=== PATIENT | male | born 1950 | race Caucasian/White ===

== ENCOUNTER 2019-02-24 12:00 | Outpatient (REF) | payer MEDICARE, SELFPAY ==
[2019-02-24 18:38] LABS: ALT 27 U/L (16-63); AST 20 U/L (15-37); Albumin 4.5 g/dL (3.4-5.0); Alkaline Phosphatase 73 U/L (46-116); Anion Gap 12.3 mmol/L (3-11); BUN 14 mg/dL (7-18); Bilirubin, Total 0.7 mg/dL (0.2-1.0); CO2 23.7 mmol/L (21.0-32.0); CREATININE 1.13 mg/dL (0.70-1.30); Calcium 9.3 mg/dL (8.5-10.1); Calculated LDL 149 mg/dL; Chloride 104 mmol/L (98-107); Cholesterol 218 mg/dL (50-200); Glucose 100 mg/dL (70-100); HDL Cholesterol 55 mg/dL (40-60); Potassium 4.2 mmol/L (3.5-5.1); Sodium 140 mmol/L (136-145); Total Protein 7.6 g/dL (6.4-8.2); Triglyceride 73 mg/dL (30-150)
== END 2019-02-24 12:20 ==
LOC: NCHCN 12:00
PROVIDERS: PCP Nurse Practitioner; Visit Provider Nurse Practitioner
DX: K74.60 Unspecified cirrhosis of liver (principal); E78.89 Other lipoprotein metabolism disorders
CPT/HCPCS: 80053; 80061

== ENCOUNTER 2019-04-20 06:51 | Emergency (ER) | payer MEDICARE, SELFPAY ==
[2019-04-20 06:53] VITALS: BP 139/83; PULSE 79; RESP 16; TEMP 36.7; O2SAT 98
--- NOTE | 2019-04-20 07:05 | ED.GENADUL_ITS ---
Discharge Plan Disposition Patient Disposition: HOME Condition: Good Discharge Details Chief Complaint: DentalOral Clinical Impression: Infected dental carries Primary Care Provider: Natalee Castro ED Provider: Karthik Akers Home Meds and New Rx's Prescriptions: New penicillin V potassium 500 mg tablet 500 mg PO QID 10 Days Qty: 40 RF: 0 No Action omeprazole 40 MG capsule,delayed release(DR/EC) 40 mg PO DAILY RF: 0 zolpidem 5 MG tablet 5 mg PO HS PRNRF: 0 bisacodyl [Dulcolax (bisacodyl)] 5 MG tablet,delayed release (DR/EC) 5 mg PO ONCE Qty: 4 RF: 0 zinc 50 MG tablet 50 mg PO DAILY RF: 0 cholecalciferol (vitamin D3) [Vitamin D3] 2,000 UNIT capsule 2,000 unit PO DAILY RF: 0 tramadol 50 MG tablet 50 mg PO BID PRNRF: 0 Discharge Instructions Instructions: Dental Caries (ED) Additional Instructions: Please take the antibiotic as directed. This will help with the pain but this will take some time to improve the symptoms. If at any point you would like the dental block that I offered, please return and we can provide it to you immediately. Please follow-up with your dentist closely, as he will likely need removal of your teeth. If you notice any worsening of your symptoms, or any new symptoms such as vomiting, diarrhea, fever, chills, shortness of breath, chest pain, numbness, weakness, or fainting , please return immediately to the emergency department for reevaluation. Please follow up with your primary care provider as soon as possible for reassessment and reevaluation. As always, it was a pleasure participating in your medical care today. Referrals: Natalee Castro [Primary Care Provider] - Medical Decision Making This is a 69-year-old male with a past medical history of liver tumors, hepatitis C, renal cancer, who presents today for evaluation of dental pain in his lower front teeth. This is been present for the last few days. He has a history of notable dental caries. Physical exam demonstrates no evidence of periapical abscess or fluctuance. Pain and mild generalized swelling is located around tooth 24/25. I did give the patient the option of receiving a dental block, however he is refused at this time. We will give a dose of antibiotics here and then a prescription for home use. Recommend continued close follow-up with his dentist. Discussed the importance of red flags for which to immediately return. Additionally I did offer that anytime he could come back for the dental block as we discussed. I have extensively reviewed the treatment plan and discharge instructions with the patient. I have addressed all patient concerns at this time. The patient was made aware of what symptoms to monitor for that would warrant a return to the emergency department. Discussed the plan with the patient, they demonstrate verbal understanding and agreement with our assessment and plan at this time. HPI General Date/Time Provider Initiated Documentation: 04/20/19 06:58 . HPI Narrative: This is a 69-year-old male with a past medical history of hepatitis C, chronic hepatitis, kidney cancer, who presents today for evaluation of dental pain. He has a history of dental caries, and has had teeth removed in the past. Patient states that for the last few days he has had pain in the lower frontal teeth. He has noticed a small amount of swelling in this area. He denies any drainage or discharge. He does have a regular dentist that he follows with, but he has not yet seen them. He denies any headache, fever, chills or other complaints. He denies any other modifying factors. No other complaints at this time. Related Data Home Medications Medication Instructions Recorded Confirmed cholecalciferol (vitamin D3) 2,000 unit PO DAILY 11/03/12 04/20/19 [Vitamin D-3] zinc 50 mg PO DAILY 11/03/12 04/20/19 omeprazole 40 mg PO DAILY 02/10/13 04/20/19 zolpidem 5 mg PO HS PRN 02/10/13 04/20/19 bisacodyl [Dulcolax] 5 mg PO ONCE #4 tab 08/30/15 04/20/19 tramadol 50 mg PO BID PRN 10/25/15 04/20/19 penicillin V potassium 500 mg PO QID 10 Days #40 tab 04/20/19 Previous Rx's Medication Instructions Recorded penicillin V potassium 500 mg PO QID 10 Days #40 tab 04/20/19 Allergies Allergy/AdvReac Type Severity Reaction Status Date / Time No Known Allergies Allergy Unverified 07/08/17 19:18 General Stated Complaint: DentalOral MELYSSA: 4 Review of Systems All systems reviewed & are unremarkable except as noted in HPI and below PFSH Medical History LIVER TUMORS Acute hepatitis c Chronic hepatitis CHRONIC NARCOTIC USE COLONIC ADENOMA Male erectile disorder NEPHROLITHIASIS Osteoarthritis Surgical History (Updated 04/03/18 @ 14:33 by [employer]) Auricular cyst excision Colonoscopy - IV Sedation egd 2009 Tooth extraction Family History Father Multiple myeloma Brother Myocardial infarction Daughter Hodgkin's disease Mother Arthritis Brother No problems noted. Social History Smoking/Tobacco Use Status: Former Tobacco Use Alcohol Intake: current Alcohol Intake frequency: holidays/special occasions only Drug use: Never Substance use type: does not use Do you feel safe at home: Yes Do you feel safe in your relationship?: Yes Exam Narrative Exam Narrative: 1.Const: Well-nourished, Well-developed, appearing stated age 2.Eyes: PERRL, no conjunctival injection, and symmetrical lids. 3.ENT: Atraumatic external nose and ears. Moist MM. Neck: Symmetric, trachea midline, No thyromegaly. Notably poor dentition throughout, front lower teeth are notably diseased, with old fracture patterns. Although there is mild swelling around the chin there is no evidence of Ludwigs angina, and there is also no evidence of fluctuance suggestive of periapical abscess. No active drainage. 4.CVS: +S1/S2, No murmurs or gallops. Peripheral pulses 2+ and equal in all extremities. Brisk capillary refill in all extremities. 5.RESP: Unlabored respiratory effort. Clear to auscultation bilaterally. No wheezes rales or rhonchi 6.GI: Soft, Nontender/Nondistended, No hepatosplenomegaly. No guarding or rebound. 7.MSK: Normocephalic/Atraumatic, Extremities w/o deformity or ttp No cyanosis or clubbing, Normal movement of all extremities 8.Skin: Warm, Dry. No rashes or lesions. 9.Neuro: nut chopper II-XII grossly intact. Sensation grossly intact, no focal neurologic deficits. 10.Psych: (AAO) x3. Appropriate mood and affect Course Vital Signs Vital signs: Vital Signs Temperature 36.7 C 04/20/19 06:53 Pulse 79 04/20/19 06:53 Respiratory Rate 16 04/20/19 06:53 Blood Pressure 139/83 04/20/19 06:53 Pulse Oximetry 98 04/20/19 06:53 Temperature 36.7 C 04/20/19 06:53 Pulse 79 04/20/19 06:53 Respiratory Rate 16 04/20/19 06:53 Respiratory Effort 04/20/19 06:56 Blood Pressure 139/83 04/20/19 06:53 Blood Pressure Position Sitting 04/20/19 06:53 Pulse Oximetry 98 04/20/19 06:53 Oxygen Delivery Method Room Air 04/20/19 06:53 Oxygen Flow Rate 0 04/20/19 06:53 Pain Level 9 04/20/19 06:53
[2019-04-20] MEDS: Amoxicillin 500 MG CAP PO (07:07)
== END 2019-04-20 07:10 | disposition home or self-care (01) ==
PROVIDERS: Emergency Provider Student in an Organized Health Care Education/Training Program; PCP Nurse Practitioner
DX: K04.7 Periapical abscess without sinus (principal)
CPT/HCPCS: 99283

== ENCOUNTER 2019-04-20 07:59 | Emergency (ER) | payer MEDICARE, SELFPAY ==
[2019-04-20 08:05] VITALS: BP 128/79; PULSE 78; RESP 16; TEMP 36.9; O2SAT 98
--- NOTE | 2019-04-20 08:06 | W.ED.GENAD ---
Discharge Plan Disposition Patient Disposition: HOME Condition: Good Discharge Details Chief Complaint: Recheck Clinical Impression: Dental infection Primary Care Provider: Natalee Castro ED Provider: Lorenza Blackwell Home Meds and New Rx's Prescriptions: Continued omeprazole 40 MG capsule,delayed release(DR/EC) 40 mg PO DAILY RF: 0 zolpidem 5 MG tablet 5 mg PO HS PRNRF: 0 bisacodyl [Dulcolax (bisacodyl)] 5 MG tablet,delayed release (DR/EC) 5 mg PO ONCE Qty: 4 RF: 0 zinc 50 MG tablet 50 mg PO DAILY RF: 0 cholecalciferol (vitamin D3) [Vitamin D3] 2,000 UNIT capsule 2,000 unit PO DAILY RF: 0 tramadol 50 MG tablet 50 mg PO BID PRNRF: 0 penicillin V potassium 500 mg tablet 500 mg PO QID 10 Days Qty: 40 RF: 0 Discharge Instructions Instructions: Dental Abscess (ED) Additional Instructions: You were given a dental block today, this should last for the next 6 + hours. Encourage hydration. Please continue with plan set forth by Dr. Akers. Please call dentist tomorrow to schedule appointment in follow up as soon as possible. If you develop new or worsening symptoms please seek care urgently once again. Referrals: Natalee Castro [Primary Care Provider] - Discharge Data Discharge Date/Time-TO BE ENTERED AT DEPARTURE: 04/20/19 08:50 Medical Decision Making Patient is a 69-year-old male with history of liver tumors, hepatitis C, renal cancer presenting today for reevaluation of lower dental pain. He was seen here an hour ago at which time he was diagnosed with an infection and started on insulin VK. Prior to his discharge, the physician had offered the patient a dental block which he declined. He presents an hour later wanting said block. No interval change. No exam, patient infection noted at the #25 to. He is edentulous 07/11/2022 2. Patient I discussed the different types of block options and decided on a localized block with lidocaine bupivacaine. Patient I discussed risk/benefits as well as expected procedural steps. He was understanding and wished to proceed. Please see procedure note. Patient tolerated this well, had good results. He was given return instruction. He will continue with discharge plan set forth by Dr. Akers, will contact dentist for definitive care. All questions and concerns were addressed, she is in agreement with this plan. HPI General Mode of arrival: ambulatory. Date/Time Provider Initiated Documentation: 04/20/19 08:00. Limitations to Documentation: no limitations. Information obtained by: patient and RN notes reviewed. History of Present Illness 69 year old M presents to the emergency department with the chief complaint of front lower dental pain, described as severe, with intensity rated at 9. Quality is described as aching, and is localized to the mouth. Patient reports no radiation. Patient started experiencing this day(s) (1) and it has been constant. No relieving factors improve symptom(s), No exacerbating factors reported . Patient notes no other symptoms.; denies fever/chills, headaches, loss of appetite, nausea/vomiting, rash and shortness of breath. Patient did receive the following treatments prior to arrival, none Related Data Home Medications Medication Instructions Recorded Confirmed cholecalciferol (vitamin D3) 2,000 unit PO DAILY 11/03/12 04/20/19 [Vitamin D3] zinc 50 mg PO DAILY 11/03/12 04/20/19 omeprazole 40 mg PO DAILY 02/10/13 04/20/19 zolpidem 5 mg PO HS PRN 02/10/13 04/20/19 bisacodyl [Dulcolax (bisacodyl)] 5 mg PO ONCE #4 tab 08/30/15 04/20/19 tramadol 50 mg PO BID PRN 10/25/15 04/20/19 penicillin V potassium 500 mg PO QID 10 Days #40 tab 04/20/19 04/20/19 Previous Rx's Medication Instructions Recorded penicillin V potassium 500 mg PO QID 10 Days #40 tab 04/20/19 Allergies Allergy/AdvReac Type Severity Reaction Status Date / Time No Known Allergies Allergy Unverified 04/20/19 08:07 General MELYSSA: 4 Review of Systems Constitutional Constitutional: Reports as per HPI, Denies chills, Denies fatigue, Denies fever(s), Denies headache(s) and Denies poor appetite Eyes Eyes: Denies change in vision and Denies irritation ENT Ears, Nose, Mouth, and Throat: Reports as per HPI, Reports dental pain, Denies dysphagia, Denies dizziness, Denies dry mouth, Denies ear discharge, Denies otalgia, Reports facial pain, Denies headache(s), Denies hoarseness, Denies lip swelling, Denies nasal congestion, Denies odynophagia and Denies sore throat Cardiovascular Cardiovascular: Reports as per HPI and Denies chest pain Respiratory Respiratory: Reports as per HPI and Denies cough Gastrointestinal Gastrointestinal: Reports as per HPI, Denies dysphagia, Denies nausea, Denies odynophagia and Denies vomiting Integumentary/Breasts Skin/Breast: Reports as per HPI, Denies erythema, Denies rash and Denies skin pain Neurologic Neurologic: Reports as per HPI, Denies dizziness and Denies headache(s) Endocrine Endocrine: Denies fatigue Allergic/Immunologic Allergic/Immunologic: Denies lip swelling COUNT INCLUDES THE [facility] Medical History LIVER TUMORS Acute hepatitis c Chronic hepatitis CHRONIC NARCOTIC USE COLONIC ADENOMA Male erectile disorder NEPHROLITHIASIS Osteoarthritis Surgical History Auricular cyst excision Colonoscopy - IV Sedation egd 2009 Tooth extraction Family History Father Multiple myeloma Brother Myocardial infarction Daughter Hodgkin's disease Mother Arthritis Brother No problems noted. Social History Smoking/Tobacco Use Status: Former Tobacco Use Alcohol Intake: current Alcohol Intake frequency: holidays/special occasions only Drug use: Never Substance use type: does not use Do you feel safe at home: Yes Do you feel safe in your relationship?: Yes Exam Const General: cooperative, healthy appearing, comfortable, no acute distress, well developed and well groomed Nutritional Appearance: average body habitus and well nourished Orientation: alert and awake [facility] Head: normal to inspection, normocephalic and atraumatic Ears: hearing grossly normal bilaterally, external ears normal and TM's normal bilaterally General nose exam: external nose normal and nares normal Face and sinus: normal facial exam, sinuses nontender and face symmetric Teeth and gingiva: poor dentition Teeth image: 1. area of erythema and swelling. No area of fluctuance to suggest drainable abscess. #25 broken and dark. Edentulous at the #24/23. Throat: posterior oropharynx normal, tonsils normal and uvula midline Eyes General: appearance normal, both eyes and all related structures Neck Neck: normal visual inspection, full ROM, no lymphadenopathy, supple and no anterior neck swelling Resp Effort & Inspection: normal respiratory effort, able to speak in complete sentences and no respiratory distress Skin General skin exam: no rashes or lesions noted Trauma: no lacerations or abrasions Neuro General: alert and awake Cognition: normal cognition Speech: speech normal Gait: normal gait Psych Appearance: grossly normal and well kempt Mental Status: mental status grossly normal Speech and Movement: speech and movement normal Procedures Nerve Block Nerve Block 1: Local Anesthetic: Lidocaine 1% and Bupivicaine 0.25% Amount of anesthesia used (mL): 1.5 Side: right Intraoral Nerve Block: supraperiosteal Procedure Successful: Yes Patient Tolerated Procedure: well and no complications
[2019-04-20] MEDS: Lidocaine 1% Multi-Dose 50 ML VIAL IJ (08:51)
== END 2019-04-20 08:50 | disposition home or self-care (01) ==
PROVIDERS: Emergency Provider Physician Assistant; PCP Nurse Practitioner
DX: K08.89 Other specified disorders of teeth and supporting structures (principal); K03.81 Cracked tooth
CPT/HCPCS: 64400

== ENCOUNTER 2019-07-28 09:00 | Outpatient (CLI) | payer MEDICARE, SELFPAY | END 2019-07-28 09:20 | PROVIDERS: PCP Nurse Practitioner; Visit Provider Nurse Practitioner | DX: R06.02 Shortness of breath (principal); Z53.8 Procedure and treatment not carried out for other reasons ==

== ENCOUNTER 2019-11-27 02:28 | Outpatient (CLI) | payer MEDICARE, SELFPAY ==
[2019-11-28 09:22] LABS: AFP Tumor Marker 4.5 ng/mL (<8.1)
== END 2019-11-27 02:48 ==
PROVIDERS: PCP Nurse Practitioner; Visit Provider Physician Assistant
DX: C22.0 Liver cell carcinoma (principal)
CPT/HCPCS: 36415; 82105

== ENCOUNTER 2020-04-28 16:35 | Emergency (ER) | payer MEDICARE, SELFPAY ==
[2020-04-28] VITALS (66 sets, daily range): BP systolic 121–151; BP diastolic 65–98; PULSE 75–124; RESP 15–31; TEMP 37–37.4; O2SAT 94–99
--- NOTE | 2020-04-28 17:03 | W.ED.GENAD ---
Discharge Plan Disposition Patient Disposition: [facility] Condition: Poor Discharge Details Chief Complaint: Abd Prob Clinical Impression: Hematoma, Abdominal pain, Post surgical complication Primary Care Provider: Natalee Castor ED Provider: Lorenza Blackwell Home Meds and New Rx's Prescriptions: No Action omeprazole 40 MG capsule,delayed release(DR/EC) 40 mg PO DAILY RF: 0 zolpidem 5 MG tablet 5 mg PO HS PRNRF: 0 bisacodyl [Dulcolax (bisacodyl)] 5 MG tablet,delayed release (DR/EC) 5 mg PO ONCE Qty: 4 RF: 0 zinc 50 MG tablet 50 mg PO DAILY RF: 0 cholecalciferol (vitamin D3) [Vitamin D3] 2,000 UNIT capsule 2,000 unit PO DAILY RF: 0 tramadol 50 MG tablet 50 mg PO BID PRNRF: 0 aspirin 81 mg tablet,chewable 81 mg PO HS RF: 0 Medical Decision Making Patient is a pleasant 70 year old male presenting to the ED with c/c of LLQ pain x 2.5 days. Patient states that he underwent a TAVR on Sunday at [facility]. PMH significant for liver tumors, hepatitis C, renal cancer, cirrosis. States that initially there was no complications but that he then suffered a brief spell of unresponsiveness in the postoperative period. Chart review shows that there was a concern for either toxic metabolic encephalopathy secondary to his cirrhosis or small TIa/CVA. He did well after this brief issue and was discharged home the following day. Patient states that pain in the LLQ began a few hours after surgery but was not very bothersome until Sunday. Pain has increased since then. Denies dysurea, increased frequency or urgency. Denies N/V/D. No previous abdominal surgeries. No hx of diverticulitis. No CP or SOB. On exam, he appears uncomfortable but nontoxic. Lungs are clear. Abdomen signficant for LLQ pain. Incision sites appear to be healing well in both sides of the groin with no erythema, warmth, drainage or signficant bruising. Mild tendernss in his left testicle but no swelling, redness or objective abnormality noted. No CVA tenderness. Considered hematoma, postoperative infection, kidney stone or diverticulitis vs. other abdominal or urologic pahtology. Will obtain baseline labs and CTA of his abdomen. Labs reviewed. WBC of 11.77. Hbg 11.6, no recent for comparison. Lactate normal. CMP without signifcant abnormality. Lipase normal. UA negative. Patient is frustrated. He wants antibiotics and to go home. Had lengthy chat with [facility] patient about my concerns. In particular, I am concerned with how quickly he became tachycardic. While speaking with the patient, he became frustrated by haivng to wait for CT and his HR jumped to 130-140s. He is receiving hydration. Agreeable to staying and much more calm at this time. Called by radiologist who advised active bleeding is noted on the CT with a 7.9 x 4.3 x 6.4cm area of hematoma. Arterial active extravasation from [facility] posterior left external iliac artery. Images were already pushed to [facility]. Will call to request transfer. [facility] advises that beds are tight, they will call back. FINDINGS: Mediastinal space: Small hiatal hernia. Aorta: New aortic valve prosthesis. The visualized lung bases are clear. Celiac trunk and mesenteric arteries: No occlusion or significant stenosis. Incidental note is made of a replaced right hepatic artery arising from the SMA. Renal arteries: No occlusion or significant stenosis. Right iliac arteries: No occlusion or significant stenosis. Left iliac arteries: Posterior left external iliac artery focus of active extravasation with left pelvic hematoma. Focus of extravasation is best seen on series 4, image 68 and series 8, image 55. The hematoma measures 7.9 cm in AP dimension by 4.3 cm in transverse dimension by 6.4 cm in craniocaudal dimension. Liver: Post ablation defect in superior segment 8 of the right liver lobe. Multiple nonspecific arterially enhancing foci in segment 4 , segment 2, and segment 6 . Follow-up CT or MRI hepatic mass protocol to exclude additional hepatic lesions. Gallbladder and bile ducts: Unremarkable. No calcified stones. No ductal dilation. Pancreas: Unremarkable. No mass. No ductal dilation. Spleen: Unremarkable. No splenomegaly. Adrenals: Unremarkable. No mass. Kidneys and ureters: Stable postoperative changes of left upper pole nephron sparing partial nephrectomy. No recurrence or residual mass. Stomach and bowel: Unremarkable. No obstruction. No mucosal thickening. Appendix: Normal appendix. No appendicitis. Intraperitoneal space: Unremarkable. No free air. No significant fluid collection. Lymph nodes: Unremarkable. No enlarged lymph nodes. Urinary bladder: Mild mass effect on the left urinary bladder wall. Reproductive: Prostate gland enlargement with median lobe hypertrophy. Bones/joints: No acute fracture. No dislocation. Soft tissues: See Left iliac arteries finding. IMPRESSION: 1. Status post TAVR with left pelvic hematoma measuring 7.9 x 4.3 x 6.4 cm with a focus of active arterial extravasation from the posterior left external iliac artery. 2. Stable postoperative changes of left partial nephrectomy and focal right upper liver ablation with no evidence for residual or recurrence disease. 3. Ill-defined small foci of arterial enhancement in the anterior and inferior right liver. Not evaluable on this single CT arteriogram but may be better followed by formal CT or MR liver mass protocol. Called transfer center again, they are able to take the patient but need to reach surgeon. Spoke with surgeon at [facility]. Vascular surgeon reviewed images, not clear if the patient is actively bleeding but will US patient in the ED. Spoke with Dr. Buenrotsro in the ED who accepts the patient in an ED to ED transfer for further evaluation. Spoke with patient and his , Ann [phone], regarding stephania. They are in agreement with this plan. HPI General Mode of arrival: ambulatory. Date/Time Provider Initiated Documentation: 04/28/20 16:49. Limitations to Documentation: no limitations. Information obtained by: patient, RN/MD (called by urgent care PA who is evaluating the patient) and RN notes reviewed. History of Present Illness 70 year old M presents to the emergency department with the chief complaint of LLQ pain, described as moderate, Quality is described as sharp, and is localized to the abdomen. Patient reports no radiation. Patient started experiencing this day(s) (2.5) and it has been constant. Immobilization improves symptom(s), Movement worsens symptoms (sitting up) . Patient notes denies chest pain, cough, fever/chills, loss of appetite, nausea/vomiting, rash and shortness of breath. Patient did receive the following treatments prior to arrival, none Related Data Home Medications Medication Instructions Recorded Confirmed cholecalciferol (vitamin D3) 2,000 unit PO DAILY 11/03/12 04/28/20 [Vitamin D3] zinc 50 mg PO DAILY 11/03/12 04/28/20 omeprazole 40 mg PO DAILY 02/10/13 04/28/20 zolpidem 5 mg PO HS PRN 02/10/13 04/28/20 bisacodyl [Dulcolax (bisacodyl)] 5 mg PO ONCE #4 tab 08/30/15 04/28/20 tramadol 50 mg PO BID PRN 10/25/15 04/28/20 aspirin 81 mg PO HS 04/28/20 04/28/20 Allergies Allergy/AdvReac Type Severity Reaction Status Date / Time No Known Allergies Allergy Unverified 04/28/20 16:57 General Stated Complaint: Abd Prob MELYSSA: 3 Review of Systems Constitutional Constitutional: Reports as per HPI, Denies chills, Denies fatigue, Denies fever(s) and Denies headache(s) ENT Ears, Nose, Mouth, and Throat: Denies headache(s) Cardiovascular Cardiovascular: Reports as per HPI, Denies chest pain and Denies dyspnea Respiratory Respiratory: Reports as per HPI, Denies cough and Denies dyspnea Gastrointestinal Gastrointestinal: Reports as per HPI Genitourinary Genitourinary: Denies system reviewed and no additional complaints, except as documented (patient denies any change in urinary habits) Musculoskeletal Musculoskeletal: Reports as per HPI and Denies back pain Integumentary/Breasts Skin/Breast: Reports as per HPI, Denies skin pain and Reports wounds (2 access sites in his grown) Neurologic Neurologic: Reports as per HPI and Denies headache(s) Endocrine Endocrine: Denies fatigue [facility] Medical History (Updated 04/28/20 @ 23:18 by STEVIE Velazquez) LIVER TUMORS Acute hepatitis c Chronic hepatitis CHRONIC NARCOTIC USE COLONIC ADENOMA Male erectile disorder NEPHROLITHIASIS Osteoarthritis Surgical History Auricular cyst excision Colonoscopy - IV Sedation egd 2010 Tooth extraction Family History Father Multiple myeloma Brother Myocardial infarction Daughter Hodgkin's disease Mother Arthritis Brother No problems noted. Social History Smoking/Tobacco Use Status: Former Tobacco Use Smoking risk assessment performed?: Yes Alcohol Intake: current Alcohol Intake frequency: holidays/special occasions only Drug use: Never Substance use type: does not use Do you feel safe at home: Yes Do you feel safe in your relationship?: Yes Exam Const General: cooperative, healthy appearing, uncomfortable, no acute distress and well developed Nutritional Appearance: average body habitus and well nourished Orientation: alert and awake [facility] Head: normal to inspection Mouth: moist mucous membranes Resp Effort & Inspection: normal respiratory effort, able to speak in complete sentences and no respiratory distress Auscultation: clear to auscultation bilaterally, no rales, no rhonchi and no wheezes Cardio Rate: tachycardic Rhythm: regular rhythm Heart Sounds: S1 normal and S2 normal GI Inspection: no abdominal wall ecchymosis, distended, no visible herniation and no visible pulsation Palpation: no hepatosplenomegaly, firm, guarding in the LLQ, no hernias, no masses, no pulsatile masses, not rigid and tender in the LLQ; with no rebound tenderness Percussion: normal to percussion Auscultation: hypoactive bowel sounds Back/Spine/Pelvis Back: no CVA tenderness Skin General skin exam: no rashes or lesions noted Trauma: no lacerations or abrasions Neuro General: patient alert and patient awake Cognition: normal cognition Speech: speech normal Gait: normal gait Extrem General: normal to inspection and other (2+ distal pulses in BLE) Psych Appearance: grossly normal and well kempt Mental Status: mental status grossly normal Speech and Movement: speech and movement normal Course Vital Signs Vital signs: Vital Signs Temperature 37.4 C 04/28/20 16:47 Pulse 93 H 04/28/20 16:47 Respiratory Rate 22 04/28/20 16:47 Blood Pressure 133/76 04/28/20 16:47 Pulse Oximetry 96 04/28/20 16:47 Temperature 37.4 C 04/28/20 16:47 Temperature Source Oral 04/28/20 16:47 Pulse 93 H 04/28/20 16:47 Respiratory Rate 22 04/28/20 16:47 Respiratory Effort 04/28/20 17:00 Blood Pressure 133/76 04/28/20 16:47 Blood Pressure Position Supine 04/28/20 16:47 Pulse Oximetry 96 04/28/20 16:47 Oxygen Delivery Method Room Air 04/28/20 16:47 Oxygen Flow Rate 0 04/28/20 16:47
[2020-04-28 17:18] LABS: Bilirubin Negative (Negative); Blood Negative (Negative); Clarity Clear (Clear); Glucose Negative (Negative); Ketones Negative (Negative); Leukocyte Esterase Negative (Negative); Nitrite Negative (Negative); Specific Gravity 1.015 (1.005-1.025); Urobilinogen 0.2 EU/dL (Up TO 0.2)
[2020-04-28] MEDS: Lactated Ringers 1,000 ML 500 ML IV (17:29)
[2020-04-28 17:49] LABS: Abs Immature Grans 0.05 10^3/uL (0.0-0.06); Absolute Basophil Count 0.04 10^3/uL (0.0-0.2); Absolute Eosinophil Count 0.02 10^3/uL (0.0-0.7); Absolute Lymphocyte Count 1.06 10^3/uL (1.2-3.4); Basophils % 0.3; Eosinophils % 0.2; HCT 33.3 % (40.0-50.0); HGB 11.6 g/dL (13.5-17.5); Immature Grans % 0.4; MCH 30.2 pg (27.0-33.0); MCHC 34.8 % (32.0-36.0); MCV 86.7 fL (80-95); Neutrophils % 79.1; Nucleated RBC 0 %; Platelet Count 183 10^3/uL (130-400); RBC 3.84 10^6/uL (4.36-5.78); RDW 12.6 % (11.8-14.1); RDW-SD 39.7 fL; WBC 11.77 10^3/uL (4.4-10.8)
[2020-04-28 17:50] LABS: Lipase 101 U/L (73-393)
[2020-04-28 17:52] LABS: Absolute Monocyte Count 1.29 10^3/uL (0.1-0.8); Absolute Neutrophil Count 9.31 10^3/uL (1.2-6.7)
[2020-04-28 17:55] LABS: ALT 26 U/L (16-63); AST 21 U/L (15-37); Albumin 3.9 g/dL (3.4-5.0); Alkaline Phosphatase 61 U/L (46-116); Anion Gap 11.7 mmol/L (3-11); BUN 12 mg/dL (7-18); Bilirubin, Total 1.3 mg/dL (0.2-1.0); CO2 24.3 mmol/L (21.0-32.0); CREATININE 1.14 mg/dL (0.70-1.30); Calcium 9.2 mg/dL (8.5-10.1); Chloride 101 mmol/L (98-107); Glucose 125 mg/dL (74-106); Potassium 3.7 mmol/L (3.5-5.1); Sodium 137 mmol/L (136-145); Total Protein 7.7 g/dL (6.4-8.2)
--- NOTE | 2020-04-28 18:00 | DI.CT_ITS ---
EXAM: CT ABDOMEN PELVIS CTA CLINICAL HISTORY: LLQ pain. TECHNIQUE: Imaging Protocol: Axial CT angiography was performed with multi-slice acquisition and m ulti-planar and/or 3D reconstructions. CONTRAST MATERIAL: Intravenous: Omnipaque 350 Contrast volume:100 mL Oral: No COMPARISON: CT CHEST ABD PELVIS WITH CONTRAST from 07/08/2017 FINDINGS: Vascular Structures: Celiac [place]/SMA: No evidence of stenosis. Renal Arteries: No evidence of stenosis. There is a single renal artery perfusing each kidney. Aorta: No aneurysm. No dissection. Pelvis: Iliac Arteries: There is active extravasation from the posterior aspect of the left external iliac a rtery. There is a left pelvic hematoma measuring 7.9 cm AP x 4.3 cm transverse by 6.4 cm craniocauda d. Common Femoral Arteries: No evidence of stenosis. Soft Tissues: Lung bases:The patient is now status post aortic valve replacement. The lung bases are clear. Small hiatal hernia. Liver: There is a hypodense defect seen in the superior segment of the right lobe of the liver. This may represent a post ablation defect. Please correlate with the patient's procedural history. Severa l enhancing lesions within the liver. Notably in the left lobe in the caudal aspect of the right lob e. Gallbladder and biliary tract: No radiodense calculus or dilation. Pancreas: Normal density, no abnormal calcifications or inflammatory process. Spleen: Normal. Kidneys: Normal size, contour and axis. No radiodense stones or obstructive uropathy. The patient is status post partial nephrectomy defect in the upper pole of the left kidney. Adrenal glands: No masses seen. Bladder: Symmetric distention, no gross wall thickening. Reproductive organs: Prostate gland is enlarged. Bowel: No obstruction or bowel wall thickening. There are a few scattered diverticuli but no evidence of acute diverticulitis. No evidence of acute appendicitis. Peritoneal cavity: No ascites, collection or mesenteric inflammatory response. Bones: Within normal limits. Lymph nodes: Within normal limits. IMPRESSION: 1. Status post TAVR. 2. Left pelvic hematoma measuring 7.9 x 4.3 x 6.4 cm with a focus of active arterial extravasation fr om the posterior aspect of the left external iliac artery. 3. Postoperative changes of a partial left nephrectomy and focal hepatic ablation in the right lobe o f the liver. 4. Ill-defined foci of arterial enhancement in the liver. There is incomplete evaluation on this exa mination. A CT or MRI using the liver protocol should be considered. RADIATION DOSE DELIVERED: 789.48mGy.cm Total DLP DATA REPOSITORY: All CT scans at this facility are submitted to the National Radiology Data Registry (NRDR) Dose Index Registry (DIR) with the [employer] ([employer]). RADIATION OPTIMIZATION: All CT scans at this facility use at least one of these dose optimization te chniques: automated exposure control; mA and/or kV adjustment per patient size (includes targeted exa ms where dose is matched to clinical indication); or iterative reconstruction.
[2020-04-28] MEDS: Normal Saline Flush 10 ML SYR IVP (19:01)
[2020-04-28] MEDS: Normal Saline - Diluent 50 ML VIAL IV (19:02)
[2020-04-28] MEDS: Omnipaque 350 MG/ML 100 ML BTL IJ (19:11)
--- NOTE | 2020-04-28 19:27 | NUR.NOTE ---
Nursing Note: IVF restarted, connected back to office assistance upon return from CT. Reports pain still to LLQ. Denies need for pain medication, no nausea. Reports no additional needs at this time, call thomson within reach.
--- NOTE | 2020-04-28 19:41 | DI.VRAD_ITS ---
Addendum created by Maria Eugenia Valdez MD on 04/28/2020 7:46:02 PM EST: The study was personally discussed on the telephone with SANTOS Vidal on 04/28/2020 7:45 PM EST. The results were understood and acknowledged. Initial report created on 04/28/2020 7:41:02 PM EST: PROCEDURE INFORMATION: Exam: CT Angiography Abdomen and Pelvis With Contrast Exam date and time: 04/28/2020 7:10 PM Age: 70 years old Clinical indication: Abdominal pain; Localized; Left lower quadrant (llq); Prior surgery; Surgery date: 3-7 days post-operative; Surgery type: Tavr 04/23/20; Patient HX: Recent tavr surgery 04/23/20, now llq pain. HX liver CA, HX surgery on liver and left kidney \R\1year ago. TECHNIQUE: Imaging protocol: Computed tomographic angiography of the abdomen and pelvis with intravenous contrast material. 3D rendering (Not supervised by radiologist): MIP and/or 3D reconstructed images were created by the technologist. Radiation optimization: All CT scans at this facility use at least one of these dose optimization techniques: automated exposure control; mA and/or kV adjustment per patient size (includes targeted exams where dose is matched to clinical indication); or iterative reconstruction. Contrast material: [id number]; Contrast volume: 100 ml; Contrast route: INTRAVENOUS (IV); COMPARISON: CT CHEST ABD PELVIS WITH CONTRAST 07/08/2017 8:27 PM FINDINGS: Mediastinal space: Small hiatal hernia. Aorta: New aortic valve prosthesis. The visualized lung bases are clear. Celiac trunk and mesenteric arteries: No occlusion or significant stenosis. Incidental note is made of a replaced right hepatic artery arising from the SMA. Renal arteries: No occlusion or significant stenosis. Right iliac arteries: No occlusion or significant stenosis. Left iliac arteries: Posterior left external iliac artery focus of active extravasation with left pelvic hematoma. Focus of extravasation is best seen on series 4, image 68 and series 8, image 55. The hematoma measures 7.9 cm in AP dimension by 4.3 cm in transverse dimension by 6.4 cm in craniocaudal dimension. Liver: Post ablation defect in superior segment 8 of the right liver lobe. Multiple nonspecific arterially enhancing foci in segment 4 , segment 2, and segment 6 . Follow-up CT or MRI hepatic mass protocol to exclude additional hepatic lesions. Gallbladder and bile ducts: Unremarkable. No calcified stones. No ductal dilation. Pancreas: Unremarkable. No mass. No ductal dilation. Spleen: Unremarkable. No splenomegaly. Adrenals: Unremarkable. No mass. Kidneys and ureters: Stable postoperative changes of left upper pole nephron sparing partial nephrectomy. No recurrence or residual mass. Stomach and bowel: Unremarkable. No obstruction. No mucosal thickening. Appendix: Normal appendix. No appendicitis. Intraperitoneal space: Unremarkable. No free air. No significant fluid collection. Lymph nodes: Unremarkable. No enlarged lymph nodes. Urinary bladder: Mild mass effect on the left urinary bladder wall. Reproductive: Prostate gland enlargement with median lobe hypertrophy. Bones/joints: No acute fracture. No dislocation. Soft tissues: See Left iliac arteries finding. IMPRESSION: 1. Status post TAVR with left pelvic hematoma measuring 7.9 x 4.3 x 6.4 cm with a focus of active arterial extravasation from the posterior left external iliac artery. 2. Stable postoperative changes of left partial nephrectomy and focal right upper liver ablation with no evidence for residual or recurrence disease. 3. Ill-defined small foci of arterial enhancement in the anterior and inferior right liver. Not evaluable on this single CT arteriogram but may be better followed by formal CT or MR liver mass protocol. Dictated and Authenticated by: Maria Eugenia Valdez MD. Ordering:VAIBHAV Britt MD
[2020-04-28 20:13] LABS: PTT Activated 26.2 sec (21.0-27.5); Prothrombin Time 10.5 sec (9.3-11.0)
== END 2020-04-28 23:10 | disposition short-term general hospital (02) ==
PROVIDERS: Emergency Provider Physician Assistant; PCP Nurse Practitioner
DX: I97.638 Postprocedural hematoma of a circulatory system organ or structure following other circulatory system procedure (principal); I97.618 Postprocedural hemorrhage of a circulatory system organ or structure following other circulatory system procedure; Y83.1 Surgical operation with implant of artificial internal device as the cause of abnormal reaction of the patient, or of later complication, without mention of misadventure at the time of the procedure; Z95.2 Presence of prosthetic heart valve
CPT/HCPCS: 36415; 80053; 83690; 96360; 96361; 99285; 74174; 81003; 83605; 85025; 85610; 85730; J3490

== ENCOUNTER 2020-04-28 17:35 | Outpatient (REF) | payer MEDICARE, SELFPAY | END 2020-04-28 17:55 | LOC: NCHCN 17:35 | PROVIDERS: PCP Nurse Practitioner; Visit Provider Physician Assistant Medical | DX: R30.0 Dysuria (principal) | CPT/HCPCS: 87086 ==

== ENCOUNTER 2022-01-23 19:10 | Emergency (ER) | payer MEDICARE, SELFPAY ==
[2022-01-23 20:16] VITALS: BP 165/73; PULSE 87; RESP 18; TEMP 36.8; O2SAT 97
--- NOTE | 2022-01-23 20:39 | W.ED.GENAD ---
Discharge Plan Disposition Patient Disposition: HOME Condition: Stable Discharge Details Clinical Impression: Anxiety, Diarrhea Primary Care Provider: TAHIRA MOLINA ED Provider: Jyoti Anderson Home Meds and New Rx's Prescriptions: Continued omeprazole 40 MG capsule,delayed release(DR/EC) 40 mg PO DAILY bisacodyl [Dulcolax (bisacodyl)] 5 MG tablet,delayed release (DR/EC) 5 mg PO ONCE Qty: 4 Rx Instructions: take all 4 tabs at once 4 hours before starting nulytely preop zinc 50 MG tablet 50 mg PO DAILY Label Comments: 600mg not available in [facility] list cholecalciferol (vitamin D3) [Vitamin D3] 2,000 UNIT capsule 2,000 unit PO DAILY tamsulosin 0.4 mg capsule 1 cap PO HS Label Comments: TAKE 1 CAPSULE BY MOUTH AT BEDTIME aspirin 81 mg tablet,chewable 81 mg PO HS Label Comments: CHEW AND SWALLOW 1 TABLET BY MOUTH ONCE DAILY No Action zolpidem 5 MG tablet 5 mg PO HS PRN tramadol 50 MG tablet 50 mg PO BID PRN Discharge Instructions Instructions: Acute Diarrhea (ED), Anxiety (ED) Additional Instructions: Take the lorazepam or Ativan 1 to 8 hours as needed for anxiety. Do not drive or drink alcohol on this medication. Follow up with primary care provider in 3-5 days. Return to ED sooner if any worsening or concerns. Increase oral fluids. At this time chest x-ray shows no evidence for pneumonia or cardiopulmonary abnormality. Initial troponin within normal limits. Labs are largely within normal limits. Referrals: TAHIRA MOLINA, GENERAL PRACTICE [Primary Care Provider] - 5 days Discharge Data Discharge Date/Time-TO BE ENTERED AT DEPARTURE: 01/23/22 22:39 Medical Decision Making 71-year-old male presents to the ER with a chief complaint of diarrhea which began yesterday he reports about 4 episodes of diarrhea after eating at a [place] restaurant. Accompanied by nausea and poor appetite. He also reports some burning type pain and feeling hot in the back of his head and neck. No rash noted. She denies any fever chills however he does report feeling hot. He also reports some throat tightness and unspecified mild non-urticarial rash to his bilateral forearms and mild chest tightness. She does have a past medical history coronary artery disease and heart catheterization which was done at [facility] [place], hepatitis C, he also reports liver tumors and partial nephrectomy due to cancer. He is not a smoker denies any drugs or alcohol. He did take a negative COVID test at home prior to arrival. He also reports increased urinary frequency. Denies any vomiting. Work-up ordered including CBC, CMP, lipase, urinalysis, EKG and troponin. Differential diagnosis includes but not limited to mild allergic reaction, gastroenteritis, UTI, anxiety, viral illness, less likely CAD. Labs are largely unremarkable, no leukocytosis, CMP shows glucose 119, urinalysis negative for UTI, initial troponin less than 50 magnesium 2.2. Serial troponin canceled. Chest x-ray is within normal limits. Time there is no obvious answer to patient's symptoms. Plan is to discharge patient home with follow-up with PCP. Patient reevaluation: He reports feeling okay no significant change. He is requesting to me for anxiety to go home with. 0.5 mg lorazepam p.o. ordered here in 1 to go. He is alert and oriented x3, hemodynamically stable. I did discuss strict return instructions and follow-up care. Reports she does have a follow-up appointment at [facility] with his liver doctor. This text was generated using Wagon dictation system, please disregard any oddities of phrase or misspellings. Medical Records Medical records reviewed: Yes I reviewed the patient's medical records. Imaging Data Radiologic Study: Imaging: X-Ray Radiologist's impression: Imaging protocol: Radiologic exam of the chest. Views: 2 views. COMPARISON: CT CHEST ABD PELVIS WITH CONTRAST 07/08/2017 8:27 PM FINDINGS: Lungs: Clear lungs. Pleural spaces: No pneumothorax. No sizable pleural effusion. Heart/Mediastinum: No cardiomegaly. TAVR. Bones/joints: Unremarkable. IMPRESSION: Clear lungs. Lab Data Lab results reviewed: Yes I reviewed the patient's lab results. Labs: Laboratory Tests Range/Units 01/23/22 01/23/22 01/23/22 20:45 20:45 20:45 WBC (4.4-10.8) 10^3/uL 10.25 RBC (4.36-5.78) 10^6/uL 4.91 Hgb (13.5-17.5) g/dL 14.5 Hct (40.0-50.0) % 41.9 MCV (80-95) fL 85 MCH (27.0-33.0) pg 29.5 MCHC (32.0-36.0) % 34.6 RDW (11.8-14.1) % 13.3 Plt Count (130-400) 10^3/uL 208 MPV (8.0-11.0) fL 10.3 Immature Gran % 0.4 Neutrophils % 77.6 Lymphocytes % 12.8 Monocytes % 8.1 Eosinophils % 0.5 Basophils % 0.6 Nucleated RBC % (0.0-0.3) % 0.0 Absolute Neutrophils (1.2-6.7) 10^3/uL 7.96 H Absolute Lymphocytes (1.2-3.4) 10^3/uL 1.31 Absolute Monocytes (0.1-0.8) 10^3/uL 0.83 H Absolute Eosinophils (0.0-0.7) 10^3/uL 0.05 Absolute Basophils (0.0-0.2) 10^3/uL 0.06 Sodium (136-145) mmol/L 140 Potassium (3.5-5.1) mmol/L 4.0 Chloride (98-107) mmol/L 106 Carbon Dioxide (21.0-32.0) mmol/L 25.2 Anion Gap (3-11) mmol/L 8.8 BUN (7-18) mg/dL 13 Creatinine (0.70-1.30) mg/dL 1.1 Estimated GFR/1.73 m2 (mL/min/1.73m2) >= 60.00 Glucose (74-106) mg/dL 119 H Calcium (8.5-10.1) mg/dL 9.6 Magnesium (1.8-2.4) mg/dL 2.2 Total Bilirubin (0.2-1.0) mg/dL 0.6 AST (15-37) U/L 30 ALT (16-63) U/L 39 Alkaline Phosphatase (46-116) U/L 72 Troponin I (<or=60) ng/L Total Protein (6.4-8.2) g/dL 8.3 H Albumin (3.4-5.0) g/dL 4.6 Lipase (73-393) U/L 102 Urine Color (Yellow) Yellow Urine Clarity (Clear) Clear Urine pH (5-8) 6.0 Ur Specific [place] (1.005-1.025) 1.010 Urine Protein (Negative) mg/dL Negative Urine Ketones (Negative) mg/dL Negative Urine Blood (Negative) Negative Urine Nitrite (Negative) Negative Urine Bilirubin (Negative) Negative Urine Urobilinogen (Up TO 0.2) EU/dL 0.2 Ur Leukocyte Esterase (Negative) Negative Urine Glucose (Negative) mg/dL Negative Range/Units 01/23/22 01/23/22 20:54 23:54 WBC (4.4-10.8) 10^3/uL RBC (4.36-5.78) 10^6/uL Hgb (13.5-17.5) g/dL Hct (40.0-50.0) % MCV (80-95) fL MCH (27.0-33.0) pg MCHC (32.0-36.0) % RDW (11.8-14.1) % Plt Count (130-400) 10^3/uL MPV (8.0-11.0) fL Immature Gran % Neutrophils % Lymphocytes % Monocytes % Eosinophils % Basophils % Nucleated RBC % (0.0-0.3) % Absolute Neutrophils (1.2-6.7) 10^3/uL Absolute Lymphocytes (1.2-3.4) 10^3/uL Absolute Monocytes (0.1-0.8) 10^3/uL Absolute Eosinophils (0.0-0.7) 10^3/uL Absolute Basophils (0.0-0.2) 10^3/uL Sodium (136-145) mmol/L Potassium (3.5-5.1) mmol/L Chloride (98-107) mmol/L Carbon Dioxide (21.0-32.0) mmol/L Anion Gap (3-11) mmol/L BUN (7-18) mg/dL Creatinine (0.70-1.30) mg/dL Estimated GFR/1.73 m2 (mL/min/1.73m2) Glucose (74-106) mg/dL Calcium (8.5-10.1) mg/dL Magnesium (1.8-2.4) mg/dL Total Bilirubin (0.2-1.0) mg/dL AST (15-37) U/L ALT (16-63) U/L Alkaline Phosphatase (46-116) U/L Troponin I (<or=60) ng/L < 50 Cancelled Total Protein (6.4-8.2) g/dL Albumin (3.4-5.0) g/dL Lipase (73-393) U/L Urine Color (Yellow) Urine Clarity (Clear) Urine pH (5-8) Ur Specific [place] (1.005-1.025) Urine Protein (Negative) mg/dL Urine Ketones (Negative) mg/dL Urine Blood (Negative) Urine Nitrite (Negative) Urine Bilirubin (Negative) Urine Urobilinogen (Up TO 0.2) EU/dL Ur Leukocyte Esterase (Negative) Urine Glucose (Negative) mg/dL HPI General Mode of arrival: ambulatory. Date/Time Provider Initiated Documentation: 01/23/22 19:11. Limitations to Documentation: no limitations. Information obtained by: patient, RN notes reviewed and old records reviewed. HPI Narrative: 71-year-old male presents to the ER with a chief complaint of diarrhea which began yesterday he reports about 4 episodes of diarrhea after eating at a [place] restaurant. Accompanied by nausea and poor appetite. He also reports some burning type pain and feeling hot in the back of his head and neck. No rash noted. She denies any fever chills however he does report feeling hot. He also reports some throat tightness and unspecified mild non-urticarial rash to his bilateral forearms and mild chest tightness. She does have a past medical history coronary artery disease and heart catheterization which was done at [facility] [place], hepatitis C, he also reports liver tumors and partial nephrectomy due to cancer. He is not a smoker denies any drugs or alcohol. He did take a negative COVID test at home prior to arrival. He also reports increased urinary frequency. Denies any vomiting. Related Data Home Medications Medication Instructions Recorded Confirmed cholecalciferol (vitamin D3) 50 2,000 unit PO DAILY 11/03/12 01/23/22 mcg (2,000 unit) capsule (Vitamin D3) zinc 50 mg tablet 50 mg PO DAILY 11/03/12 01/23/22 omeprazole 40 mg capsule,delayed 40 mg PO DAILY 02/10/13 01/23/22 release zolpidem 5 mg tablet 5 mg PO HS PRN 02/10/13 01/23/22 bisacodyl 5 mg tablet,delayed 5 mg PO ONCE #4 tabs 08/30/15 04/28/20 release (Dulcolax (bisacodyl)) tramadol 50 mg tablet 50 mg PO BID PRN 10/25/15 01/23/22 aspirin 81 mg chewable tablet 81 mg PO HS 04/28/20 01/23/22 tamsulosin 0.4 mg capsule 1 cap PO HS 01/23/22 01/23/22 Allergies Allergy/AdvReac Type Severity Reaction Status Date / Time No Known Allergies Allergy Unverified 01/23/22 20:22 General Stated Complaint: Abd Prob MELYSSA: 3 Review of Systems All systems reviewed & are unremarkable except as noted in HPI and below Constitutional Constitutional: Reports chills, Denies fever(s), Reports headache(s) and Reports night sweats ENT Ears, Nose, Mouth, and Throat: Reports as per HPI, Reports headache(s) and Reports neck pain Cardiovascular Cardiovascular: Denies chest pain (chest tightness) Respiratory Respiratory: Denies cough, Denies hemoptysis, Denies stridor and Denies wheezing Gastrointestinal Gastrointestinal: Denies abdominal pain, Denies hematochezia, Reports cramping, Reports diarrhea, Reports nausea and Denies vomiting Genitourinary Genitourinary: Denies dysuria, Denies testicular mass, Denies testicular pain and Reports urinary frequency Musculoskeletal Musculoskeletal: Reports as per HPI and Reports neck pain Integumentary/Breasts Skin/Breast: Reports as per HPI, Reports rash and Reports skin pain Neurologic Neurologic: Reports headache(s) Psychiatric Psychiatric: Reports abnormal sleep pattern, Reports anxiety, Denies homicidal ideation and Denies suicidal ideation Allergic/Immunologic Allergic/Immunologic: Denies wheezing PFSH All Active Problems (Updated 01/23/22 @ 22:19 by Jyoti Anderson NP) Anxiety (Chronic) Diarrhea (Acute) Medical History (Updated 01/23/22 @ 22:19 by Jyoti Anderson NP) LIVER TUMORS Acute hepatitis c Chronic hepatitis CHRONIC NARCOTIC USE COLONIC ADENOMA Male erectile disorder NEPHROLITHIASIS Osteoarthritis Surgical History Auricular cyst excision Colonoscopy - IV Sedation egd 2009 Tooth extraction Family History Father Multiple myeloma Brother Myocardial infarction Daughter Hodgkin's disease Mother Arthritis Brother No problems noted. Social History (Reviewed 04/28/20 @ 20:19 by AUGUSTO Velazquez Smoking/Tobacco Use Status: Former Tobacco Use Smoking risk assessment performed?: Yes Alcohol Intake: current Alcohol Intake frequency: holidays/special occasions only Drug use: Never Substance use type: does not use Do you feel safe at home: Yes Do you feel safe in your relationship?: Yes Exam Narrative Exam Narrative: Constitutional: Alert and oriented x3. Appears stated age. Normal body habitus.Speaking in full sentences Head: Normocephalic, no trauma. Eyes: Pupils PERRL, Red reflex noted, EOM's intact. Eyelids symmetrical without lesions, discharge, or swelling. ENT: Bilateral TM's WNL, External ear normal to inspection, no mastoid TTP, swelling, or erythema, Nasal turbinates WNL, no nasal discharge. Normal dentition, Posterior pharynx WNL, no exudate. Chest: RRR, Normal S1, S2, distal pulses intact. Resp: Lungs clear to auscultation bilaterally, no wheezes, rales, or rhonchi. Abdomen: Soft, non-distended, Normoactive bowel sounds all 4 quads. Musculoskeletal: Normal gait, 5/5 strength to all four extremities. Skin: Mild discoloration to bilateral forearms, nonraised, non urticarial. No other rashes noted Capillary refill less than 2 sec. Neurologic: Cranial nerves II-XII intact. Alert and oriented x 3. Motor: No deficits noted. Sensory: Intact bilaterally all 4 extremities. Reflexes: DTR's intact bilaterally.. Hematologic/Lymphatic: No ecchymosis, no lymphadenopathy. Course Vital Signs Vital signs: Vital Signs Temperature 36.8 C 01/23/22 20:16 Pulse 87 01/23/22 20:16 Respiratory Rate 18 01/23/22 20:16 Blood Pressure 165/73 H 01/23/22 20:16 Pulse Oximetry 97 01/23/22 20:16 Temperature 36.8 C 01/23/22 20:16 Temperature Source Temporal Artery Scan 01/23/22 20:16 Pulse 87 01/23/22 20:16 Respiratory Rate 18 01/23/22 20:16 Respiratory Effort Non-Labored 01/23/22 20:19 Blood Pressure 165/73 H 01/23/22 20:16 Blood Pressure Position Supine 01/23/22 20:16 Pulse Oximetry 97 01/23/22 20:16 Oxygen Delivery Method Room Air 01/23/22 20:16 Oxygen Flow Rate 0 01/23/22 20:16 Pain Level 5 01/23/22 20:16 Comment 01/23/22 20:16
--- NOTE | 2022-01-23 20:45 | DI.RAD_ITS ---
Exam(s) XR CHEST 2V PA LATERAL EXAM: XR CHEST 2V PA LATERAL CLINICAL HISTORY: Chest Tightness, R/O PNA TECHNIQUE: 2D digital imaging was performed. COMPARISON: CT CHEST ABD PELVIS WITH CONTRAST from 07/08/2017 FINDINGS: MEDIASTINUM: Normal. HEART: Normal size. Aorta tortuous.. Aortic valve prosthesis. PULMONARY VASCULATURE: Normal. LUNGS: Clear. PLEURAL SPACE: No pleural effusion or pneumothorax. BONE:Unremarkable for age. IMPRESSION: No acute abnormality. DATA REPOSITORY: RADIATION DOSE DELIVERED:
[2022-01-23 21:10] LABS: Bilirubin Negative (Negative); Blood Negative (Negative); Clarity Clear (Clear); Glucose Negative (Negative); Ketones Negative (Negative); Leukocyte Esterase Negative (Negative); Nitrite Negative (Negative); Urobilinogen 0.2 EU/dL (Up TO 0.2)
[2022-01-23 21:16] LABS: Abs Immature Grans 0.04 10^3/uL (0.0-0.06); Absolute Basophil Count 0.06 10^3/uL (0.0-0.2); Absolute Eosinophil Count 0.05 10^3/uL (0.0-0.7); Absolute Lymphocyte Count 1.31 10^3/uL (1.2-3.4); Absolute Monocyte Count 0.83 10^3/uL (0.1-0.8); Absolute Neutrophil Count 7.96 10^3/uL (1.2-6.7); Basophils % 0.6; Eosinophils % 0.5; HCT 41.9 % (40.0-50.0); HGB 14.5 g/dL (13.5-17.5); Immature Grans % 0.4; Lymphocytes % 12.8; MCH 29.5 pg (27.0-33.0); MCHC 34.6 % (32.0-36.0); MCV 85 fL (80-95); MPV 10.3 fL (8.0-11.0); Monocytes % 8.1; Neutrophils % 77.6; Platelet Count 208 10^3/uL (130-400); RBC 4.91 10^6/uL (4.36-5.78); RDW 13.3 % (11.8-14.1); RDW-SD 41.6 fL; WBC 10.25 10^3/uL (4.4-10.8)
[2022-01-23 21:28] LABS: ALT 39 U/L (16-63); AST 30 U/L (15-37); Albumin 4.6 g/dL (3.4-5.0); Alkaline Phosphatase 72 U/L (46-116); Anion Gap 8.8 mmol/L (3-11); BUN 13 mg/dL (7-18); Bilirubin, Total 0.6 mg/dL (0.2-1.0); CO2 25.2 mmol/L (21.0-32.0); CREATININE 1.1 mg/dL (0.70-1.30); Calcium 9.6 mg/dL (8.5-10.1); Chloride 106 mmol/L (98-107); Glucose 119 mg/dL (74-106); Lipase 102 U/L (73-393); Magnesium 2.2 mg/dL (1.8-2.4); Sodium 140 mmol/L (136-145); Total Protein 8.3 g/dL (6.4-8.2)
[2022-01-23 21:33] LABS: Troponin I < 50 ng/L (<or=60)
--- NOTE | 2022-01-23 21:57 | DI.VRAD_ITS ---
PROCEDURE INFORMATION: Exam: XR Chest Exam date and time: 01/23/2022 9:20 PM Age: 71 years old Clinical indication: Other: Chest tightness, R/O pna TECHNIQUE: Imaging protocol: Radiologic exam of the chest. Views: 2 views. COMPARISON: CT CHEST ABD PELVIS WITH CONTRAST 07/08/2017 8:27 PM FINDINGS: Lungs: Clear lungs. Pleural spaces: No pneumothorax. No sizable pleural effusion. Heart/Mediastinum: No cardiomegaly. TAVR. Bones/joints: Unremarkable. IMPRESSION: Clear lungs. Dictated and Authenticated by: Jimmy Harris MD. Ordering:HARRY Montes MD
[2022-01-23] MEDS: Normal Saline 1,000 ML 1000 ML IV (21:59)
[2022-01-23 22:38] VITALS: BP 154/71; PULSE 85; RESP 18; O2SAT 98
[2022-01-23] MEDS: LORazepam 0.5 MG TAB PO ×2 (23:00→23:01)
== END 2022-01-23 22:39 | disposition home or self-care (01) ==
PROVIDERS: Emergency Provider Registered Nurse Emergency; PCP Nurse Practitioner Family
DX: R19.7 Diarrhea, unspecified (principal); F41.9 Anxiety disorder, unspecified; Z87.891 Personal history of nicotine dependence; R07.89 Other chest pain
CPT/HCPCS: 80053; 83690; 96360; 99284; 71046; 81003; 83735; 84484; 85025

== ENCOUNTER 2022-11-24 10:13 | Day surgery (SDC) | payer MEDICARE, SELFPAY ==
--- NOTE | 2022-11-24 06:41 | W.ANESPRE ---
General Info Date of Service Date Performed: 11/24/22 Height: 5 ft 9 in Weight: 90.718 kg Body Mass Index (BMI): 29.5 Surgical Procedure: Operation Date: 11/24/22 13:40 Proposed Procedure Side Surgeon p Cataract Extraction with IOL Implant Left Karl Win MD Meds Allergies and Home Medications Allergies Allergy/AdvReac Type Severity Reaction Status Date / Time No Known Allergies Allergy Unverified 11/24/22 11:41 Home Medication Medication Instructions Recorded cholecalciferol (vitamin D3) 50 2,000 unit PO DAILY 11/03/12 mcg (2,000 unit) capsule (Vitamin D3) zinc 50 mg tablet 50 mg PO DAILY 11/03/12 omeprazole 40 mg capsule,delayed 40 mg PO DAILY 02/10/13 release zolpidem 5 mg tablet 5 mg PO HS PRN 02/10/13 tramadol 50 mg tablet 50 mg PO BID PRN 10/25/15 aspirin 81 mg chewable tablet 81 mg PO HS 04/28/20 tamsulosin 0.4 mg capsule 1 cap PO HS 01/23/22 Current Visit Medications: Current Medications Generic Name Dose Route Start Last Admin Trade Name Freq PRN Reason Stop Dose Admin Acetaminophen 1,000 mg 11/24/22 06:00 Acetaminophen 500 Mg Tab PO 12/24/22 05:59 Q4H PRN PRN Balanced Salt Solution 500 ml 11/24/22 06:00 Balanced Salt Soln.-Plus 500 Ml Bag OP 12/24/22 05:59 DIRECTED MANUELA Miscellaneous Medication 0 ml 11/24/22 06:00 Prednisolone 1%, Moxifloxacin 0.5%, Nepafenac 0.1% 5ml Btl OS 12/24/22 05:59 DIRECTED MANUELA Miscellaneous Medication 0 ml 11/24/22 06:00 Tropicam./Phenyleph. (1/2.5%) 5 Ml Btl OS 12/24/22 05:59 DIRECTED MANUELA Tetracaine HCl 0 ml 11/24/22 06:00 Tetracaine 0.5% 4 Ml Btl OS 12/24/22 05:59 DIRECTED MANUELA PFSH Active Problems Active Problems: Problem Status Onset Code Nuclear age-related cataract, left eye H25.12 Cortical age-related cataract, left eye H25.012 Medical History Medical History (Updated 11/24/22 @ 11:39 by Jennyfer Arizmendi) LIVER TUMORS Acute hepatitis c Adjustment disorder Chronic back pain Chronic hepatitis CHRONIC NARCOTIC USE COLONIC ADENOMA Dyspnea GERD (gastroesophageal reflux disease) History of transcatheter aortic valve replacement (TAVR) Hx of cardiac murmur Insomnia Male erectile disorder NEPHROLITHIASIS Osteoarthritis Poor dentition Severe aortic stenosis s/p TAVR 2019 Surgical History Surgical History Auricular cyst excision Colonoscopy - IV Sedation egd 2009 Tooth extraction Tobacco Smoking/Tobacco Use Status: Former Tobacco Use Alcohol Alcohol Intake: current Alcohol intake frequency: holidays/special occasions only Substance Use Substance use: Never Substance use type: does not use Vital Signs and Lab Results Vital Signs Most Recent Vital Signs in EMR: Temp Pulse Resp BP Pulse Ox 36.6 C 77 16 132/87 96 11/24/22 11:20 11/24/22 11:20 11/24/22 11:20 11/24/22 11:20 11/24/22 11:20 Lab Results Blood Type / Crossmatch: No Data to Display Complete Blood Count: No Data to Display Complete Metabolic Panel: No Data to Display Liver Function Panel: No Data to Display Coagulation Panel: No Data to Display Cardiac Panel: No Data to Display Arterial Blood Gas: No Data to Display Venous Blood Gas: No Data to Display Pancreas Panel: No Data to Display Thyroid Panel: No Data to Display Infectious Disease: No Data to Display Blood Cultures: No Data to Display Toxicology Panel: No Data to Display Anesthesia Assessment and Plan Anesthesia History Personal History: No History of Anesthesia Complications Family History: No Family History of Anesthesia Complications Exercise Tolerance Exercise Tolerance: Metabolic Equivalents>4 Cardiac & Pulmonary Exam Cardiac Exam: Normal S1/S2 Heart Sounds Pulmonary Exam: Clear Bilateral Breath Sounds Implantable Cardiac Device Does patient have a Pacemaker or an ICD?: No Airway Exam Known Difficult Airway: No Mallampati Class: 3 Mouth Opening: Normal (> 3cm) Thyromental Distance: Greater than 3 cm Neck Range of Motion: Full ROM Neck Circumference: Normal Teeth Condition: Normal Dentition ASA Classification ASA Score: ASA 3 Emergency Case?: No NPO Status NPO Status: NPO Clears >2 hours, Solids >8 hours Anesthesia Plan Resuscitation Status: Full Code Anesthesia Technique: MAC Anesthesia Airway Planned: Natural Airway Monitors Used: Standard Monitors Preoperative Comments:: 72 yo male for cataract removal. Sig PMHx: Hep C, GERD, TAVR (2019), former smoker, occ EtOh.
[2022-11-24 11:20] VITALS: BP 132/87; PULSE 77; RESP 16; TEMP 36.6; O2SAT 96
[2022-11-24 11:23] VITALS: BMI 29.5
[2022-11-24] MEDS: Tropicam./Phenyleph. (1/2.5%) 5 ML BTL OS ×3 (11:47→11:59)
[2022-11-24] MEDS: Balanced Salt Soln.-PLUS 500 ML BAG OP (12:32)
[2022-11-24] MEDS: Tetracaine 0.5% 4 ML BTL OS (12:33)
[2022-11-24] MEDS: Lidocaine 1% Pres-Free 5 ML VIAL (12:33)
[2022-11-24] MEDS: Duovisc Viscoelastic System EACH 1 EACH (12:33)
[2022-11-24] MEDS: Povidone-Iodine Ophth 30 ML BTL (12:34)
[2022-11-24] MEDS: Phenylephrine/Lidocaine (15/10) MG/ML 1 ML VIAL (12:34)
[2022-11-24] MEDS: Trypan Blue 0.06% 0.5 ML SYR (12:35)
[2022-11-24 12:52] VITALS: BP 148/73; PULSE 74; RESP 16; TEMP 36.7; O2SAT 94
--- NOTE | 2022-11-24 12:53 | ROE_ITS ---
Date of service: 11/24/22 Time of Service: 12:53 Operative Note Operative Note DATE OF PROCEDURE: 11/24/22 PRE-OP DIAGNOSIS: Dense nuclear/cortical cataract, left eye POST-OP DIAGNOSIS: same PROCEDURE: Cataract extraction using phacoemulsification with intraocular lens implant, left eye SURGEON: Karl Win ANESTHESIA TYPE: Local By Surgeon and MAC Refer to Anesthesia Record PATHOLOGY: none sent COMPLICATIONS: None Patient was transported to: same day Patient's condition: stable Implants: Sai and Sai Tecnis Eyhance [id number] Indications: Progressive decreased vision due to cataract, left eye Procedure Description: CATARACT SURGERY OPERATIVE REPORT PREOPERATIVE DIAGNOSIS: 1. Dense nuclear/cortical cataract, left eye POSTOPERATIVE DIAGNOSIS: Same OPERATION: 1. Cataract extraction using phacoemulsification with posterior chamber intraocular lens implant, left eye. IOL: IOL Processing Archivist/Model: Sai & Sai Tecnis Eyhance DIB00 IOL Power: + 20.0 diopters IOL Serial Number: [id number] Optic Diameter: 6.0 mm Haptic/Overall Diameter: 13.0 mm PHACO INFO: [email or web address] Vision System with OZil and Active Fluidics Cumulative Dispersed Energy (CDE): 21.28 seconds SURGEON: Karl Win MD, ZBIGNIEW ANESTHESIA: Monitored A [facility] (MAC), with local sub-tenon's anesthetic infiltration COMPLICATIONS: None SPECIMENS: None INDICATIONS FOR PROCEDURE: The patient is a 72-year-old gentleman with history of diminished visual acuity in his left eye secondary to the development of dense nuclear/cortical cataract. He is significantly symptomatic that he desires cataract surgery and attempt to improve and maximize his vision. The option of cataract surgery was offered to the patient and he wished to proceed. See office notes for detailed information. PROCEDURE: The correct surgical eye was identified and marked as the left eye and the pupil was dilated in the preoperative area using mydriatics and cycloplegics. The dilated pupil size was 5.0 mm. The patient elected to proceed without oral sedation. The patient was brought to the operating room where cardiopulmonary monitoring was instituted and surgical time-out was performed, confirming the correct operative eye and IOL power. Topical anesthesia was administered and ophthalmic povidone-iodine 5% was instilled into the conjunctival fornices. The ashleigh-ocular area was prepped with Betadine 10% solution and draped in the usual sterile fashion for intraocular surgery, including an aperture drape. A Tegaderm transparent film dressing was cut in half and used to cover the lashes and lid margins. Care was taken to sequester the lashes and lid margins under the Tegaderm dressing. A lid speculum was placed between the lids of the operative eye and the Cyrus Lux[employer] Revalia operating microscope was maneuvered into position. Mark scissors were then used to make a conjunctival buttonhole approximately 6mm posterior to the limbus in the inferonasal quadrant. Blunt dissection was carried out to expose bare sclera, and a blunt-tipped sub-tenon?s anesthesia cannula was introduced and passed posteriorly along the globe where non- preserved plain lidocaine was injected into posterior sub-Tenon?s space. A sideport knife was used to make a paracentesis port. VisionBlue was injected into the anterior chamber and allowed to sit for 15 to 20 seconds. Intraocular phenylephrine/lidocaine was injected int the anterior chamber.. The anterior chamber was filled with viscoelastic. A keratome knife was used to construct a 2-plane near-clear corneal tunnel extending 2.0mm into clear cornea. A flap was raised on the anterior capsule and capsulorhexis forceps were used to complete a continuous curvilinear capsulorhexis of 5.0 mm. Balanced salt solution was then used to perform cortical cleaving hydrodissection and nuclear hydrodelineation until the lens could be freely rotated within the capsular bag. The lens nucleus was then disassembled and removed within the capsular bag and iris plane using phacoemulsification. Residual cortical material was removed using the irrigation/aspiration handpiece. The posterior capsule was carefully polished to remove as much residual lens epithelial cells as safely possible. The capsular bag was then inflated and the anterior chamber deepened with viscoelastic. The lens implant described above was inserted into the capsular bag using the Sai and Sai Simplicity pre-loaded injector. A Kuglen hook was used to dial the IOL into position. Residual viscoelastic was then removed first from posterior to the IOL, then from the anterior chamber using the I/A handpiece. The lens implant was noted to center nicely within the capsular bag. The incisions were stromally hydrated, and the anterior chamber was reformed using BSS. Then 0.5cc of moxifloxacin 1.0mg/ml were injected into the capsular bag and anterior chamber. The incisions were checked with a Weck spear and found to be secure. Several drops of ophthalmic povidone-iodine 5% were then applied to the eye followed by two drops of Imprimis combination prednisolone/moxifloxacin/nepafenac solution. The drapes were removed and a clear plastic protective eye shield was placed over the eye. The patient was then returned to [facility] Surgery in stable condition.
--- NOTE | 2022-11-24 12:53 | W.PM.DSUDISC ---
Date of service: 11/24/22 Time of Service: 12:53 Discharge Plan Disposition Patient Disposition: Home Discharge Details Reason For Visit: CATARACT Attending Provider: Karl Win Primary Care Provider: TAHIRA MOLINA Home Meds and New Rx's Prescriptions: No Action omeprazole 40 MG capsule,delayed release(DR/EC) 40 mg PO DAILY zolpidem 5 MG tablet 5 mg PO HS PRN zinc 50 MG tablet 50 mg PO DAILY Patient Comments: 600mg not available in nvrh list cholecalciferol (vitamin D3) [Vitamin D3] 2,000 UNIT capsule 2,000 unit PO DAILY tramadol 50 MG tablet 50 mg PO BID PRN tamsulosin 0.4 mg capsule 1 cap PO HS Patient Comments: TAKE 1 CAPSULE BY MOUTH AT BEDTIME aspirin 81 mg tablet,chewable 81 mg PO HS Patient Comments: CHEW AND SWALLOW 1 TABLET BY MOUTH ONCE DAILY Discharge Instructions Stand Alone Forms: Post-op Topical Cataract, Press Ganey (DSU) Discharge Orders Discharge Orders: Discharge Order (Routine); Ordered 11/24/22 Ordered By: Karl Win DS: Diagnosis Discharge Diagnosis (1) Nuclear age-related cataract, left eye: Status: Resolved (2) Cortical age-related cataract, left eye: Status: Resolved
--- NOTE | 2022-11-24 13:36 | ROE_ITS ---
Date of service: 11/24/22 Time of Service: 13:36 Operative Note Operative Note DATE OF PROCEDURE: 11/24/22 PRE-OP DIAGNOSIS: Retained lens material following cataract surgery, left eye POST-OP DIAGNOSIS: same PROCEDURE: Removal of retained lens material, left eye SURGEON: Karl Win ANESTHESIA TYPE: Local By Surgeon and MAC Refer to Anesthesia Record PATHOLOGY: none sent COMPLICATIONS: None Patient was transported to: same day Patient's condition: stable Indications: Retained lens material following cataract surgery, left eye with intraocular inflammation Procedure Description: CATARACT SURGERY OPERATIVE REPORT PREOPERATIVE DIAGNOSIS: 1. Retained lens material following cataract surgery, left eye POSTOPERATIVE DIAGNOSIS: Same OPERATION: 1. Removal of retained lens material following cataract surgery, left eye PHACO INFO: Cyrus iKnowlurion Vision System with OZil and Active Fluidics Cumulative Dispersed Energy (CDE): 0.0 seconds SURGEON: Karl Win MD, ZBIGNIEW ANESTHESIA: Monitored A [facility] (MAC), with local sub-tenon's anesthetic infiltration COMPLICATIONS: None SPECIMENS: None INDICATIONS FOR PROCEDURE: The patient is a 79-year-old lady who originally underwent cataract surgery in the left eye on 10/09/2022. She was noted to have a very dense nuclear cataract as well as dense peripheral arcus senilis. She did well postoperatively, but presented approximately 1 week ago with complaints of photophobia in the left eye. On examination she was noted to have intraocular inflammation, and a 3 mm fragment of lens material was identified in the inferior chamber angle. This was not present on previous examinations. She now presents for removal of retained leg fragment of the left eye. PROCEDURE: The correct surgical eye was identified and marked as the left eye. Oral sedation was administered in the form of one half of an Imprimis MKO Melt (midazolam 3mg/ketamine 25mg/ondansetron 2mg). The patient was brought to the operating room where cardiopulmonary monitoring was instituted and surgical time-out was performed, confirming the correct operative eye and IOL power. Topical anesthesia was administered and ophthalmic povidone-iodine 5% was instilled into the conjunctival fornices. The ashleigh-ocular area was prepped with Betadine 10% solution and draped in the usual sterile fashion for intraocular surgery, including an aperture drape. A Tegaderm transparent film dressing was cut in half and used to cover the lashes and lid margins. Care was taken to sequester the lashes and lid margins under the Tegaderm dressing. A lid speculum was placed between the lids of the operative eye and the Cyrus LuxOR Revalia operating microscope was maneuvered into position. Mark scissors were then used to make a conjunctival buttonhole approximately 6mm posterior to the limbus in the inferonasal quadrant. Blunt dissection was carried out to expose bare sclera, and a blunt-tipped sub-tenon?s anesthesia cannula was introduced and passed posteriorly along the globe where non- preserved plain lidocaine was injected into posterior sub-Tenon?s space. A sideport knife was used to make a paracentesis port. Intraocular phenylephrine/lidocaine was injected into the anterior chamber.. The anterior chamber was filled with cohesive viscoelastic. A [employer] nucleus manipulator was then used to bluntly dissect open the previous phaco incision temporally. The nuclear fragment was identified in the inferior nasal angle, approximately 3 mm in size, with moderate brunescent's. The irrigation/aspiration handpiece was then used to engage the nuclear fragment, and with the help of a second instrument, the fragment was removed using irrigation/aspiration only, no phacoemulsification was necessary. The incisions were stromally hydrated, and the anterior chamber was reformed using BSS. Then 0.5cc of moxifloxacin 1.0mg/ml were injected into the capsular bag and anterior chamber. At the conclusion of the procedure, Kenalog 20 mg and 0.5 cc were injected into posterior sub-tenon's space using the sub-tenon's anes thesia cannula. The incisions were checked with a Weck spear and found to be secure. Several drops of ophthalmic povidone-iodine 5% were then applied to the eye followed by two drops of Imprimis combination prednisolone/moxifloxacin/nepafenac solution. The drapes were removed and a clear plastic protective eye shield was placed over the eye. The patient was then returned to Same Day Surgery in stable condition.
--- NOTE | 2022-11-24 13:36 | W.PM.DSUDISC ---
Date of service: 11/24/22 Time of Service: 13:36 Discharge Plan Disposition Patient Disposition: Home Discharge Details Reason For Visit: CATARACT Attending Provider: Karl Win Primary Care Provider: TAHIRA MOLINA Home Meds and New Rx's Prescriptions: No Action omeprazole 40 MG capsule,delayed release(DR/EC) 40 mg PO DAILY zolpidem 5 MG tablet 5 mg PO HS PRN zinc 50 MG tablet 50 mg PO DAILY Patient Comments: 600mg not available in nvrh list cholecalciferol (vitamin D3) [Vitamin D3] 2,000 UNIT capsule 2,000 unit PO DAILY tramadol 50 MG tablet 50 mg PO BID PRN tamsulosin 0.4 mg capsule 1 cap PO HS Patient Comments: TAKE 1 CAPSULE BY MOUTH AT BEDTIME aspirin 81 mg tablet,chewable 81 mg PO HS Patient Comments: CHEW AND SWALLOW 1 TABLET BY MOUTH ONCE DAILY Discharge Instructions Stand Alone Forms: Post-op Topical Cataract, Press Ganey (DSU) Discharge Orders Discharge Orders: Discharge Order (Routine); Ordered 11/24/22 Ordered By: Karl Win Discharge Data Discharge Date/Time-TO BE ENTERED AT DEPARTURE: 11/24/22 13:10 DS: Diagnosis Discharge Diagnosis (1) Retained lens material following cataract surgery of left eye: Status: Resolved
--- NOTE | 2022-11-24 15:55 | W.ANESPOSTOP ---
Postoperative Evaluation Date, Time and Location Date Performed: 11/24/22 Time Performed: 13:00 Patient Location: Day Surgery Unit Vital Signs Most Recent Imported Vital Signs: Most Recent Vital Signs Temp Pulse Resp BP Pulse Ox 36.7 C 74 16 148/73 H 94 11/24/22 12:52 11/24/22 12:52 11/24/22 12:52 11/24/22 12:52 11/24/22 12:52 Pain Score Most Recent Pain Score: Most Recent Pain Score Pain Level 0 11/24/22 12:52 Assessment Mental Status: Awake (Alert & Oriented to Patient Baseline) Airway and Respiratory Function: Patent airway with normal (patient baseline) respiratory exam Cardiovascular Function: Hemodynamically Stable Hydration Status: Adequately Hydrated Nausea & Vomiting: No Nausea or Vomiting Pain: Pt. Denies Any Pain Peripheral Nerve Block: Patient did not receive a nerve block
== END 2022-11-24 13:10 | disposition home or self-care (01) ==
PROVIDERS: PCP Nurse Practitioner Family; Visit Provider Ophthalmology
PROC: (CPT 66984; principal; 2022-11-24 13:30)
DX: H25.12 Age-related nuclear cataract, left eye (principal); H25.012 Cortical age-related cataract, left eye; H59.022 Cataract (lens) fragments in eye following cataract surgery, left eye; K21.9 Gastro-esophageal reflux disease without esophagitis
CPT/HCPCS: 66984; V2632

== ENCOUNTER 2023-12-20 16:31 | Outpatient (REF) | payer MEDICARE, SELFPAY ==
[2023-12-24 13:11] LABS: Lyme Ab w Rflx to Lyme Confirm Positive (Negative)
[2023-12-24 15:46] LABS: Lyme IgG Ab Positive (Negative); Lyme IgM Ab Negative (Negative)
[2023-12-24 19:20] LABS: B. miyamotoi PCR Negative (Negative); Babesia divergens/MO-1 Negative (Negative); Babesia duncani Negative (Negative); Babesia microti Negative (Negative); Ehrlichia chaffeensis Negative (Negative); Ehrlichia ewingii/canis Negative (Negative); Ehrlichia muris eauclairensis Negative (Negative)
[2023-12-26 09:43] LABS: Anaplasma phagocytophilum Positive (Negative)
== END 2023-12-20 16:32 | disposition home or self-care (01) ==
LOC: NCHCN 16:31
PROVIDERS: PCP Nurse Practitioner Family; Visit Provider Physician Assistant Medical
DX: T14.8XXA Other injury of unspecified body region, initial encounter (principal); W57.XXXA Bitten or stung by nonvenomous insect and other nonvenomous arthropods, initial encounter; R76.0 Raised antibody titer
CPT/HCPCS: 86617; 87798; 86618

== ENCOUNTER 2024-01-17 04:58 | Outpatient (CLI) | payer MEDICARE, SELFPAY ==
[2024-01-17] MEDS: Inhaler, Assist Device 1 EACH MC (11:07)
[2024-01-17] MEDS: Levalbuterol HFA 15 GM INH 4 PUFF IH (11:07)
--- NOTE | 2024-01-17 14:46 | W.PFT ---
Date of service: 01/17/24 Time of Service: 10:00 Pulmonary Function Test Result Requesting Provider Christina Daniels Indications: LEMUS Impression Normal spirometry, lung volumes and diffusion. Normal flow volume curve. Clinical Correlation therefore is recommended.
== END 2024-01-17 04:59 | disposition home or self-care (01) ==
LOC: RT 05:00
PROVIDERS: PCP Nurse Practitioner Family; Visit Provider Nurse Practitioner Family
DX: R06.00 Dyspnea, unspecified (principal)
CPT/HCPCS: 00123; 94060; 94726; 94729

== ENCOUNTER 2024-06-16 14:55 | Outpatient (REF) | payer MEDICARE, SELFPAY ==
[2024-06-16 16:21] LABS: ALT 33 U/L (16-63); AST 31 U/L (15-37); Albumin 4.2 g/dL (3.4-5.0); Alkaline Phosphatase 71 U/L (46-116); BUN 14 mg/dL (7-18); Bilirubin, Total 0.47 mg/dL (0.2-1.0); CREATININE 1.3 mg/dL (0.70-1.30); Calcium 9.4 mg/dL (8.5-10.1); Calculated LDL 74 mg/dL (<100); Chloride 106 mmol/L (98-107); Cholesterol 144 mg/dL (<200); Estimated GFR 57.65 (mL/min/1.73m2); Glucose 111 mg/dL (74-106); HDL Cholesterol 53 mg/dL (40-60); Potassium 4.3 mmol/L (3.5-5.1); Sodium 143 mmol/L (136-145); Total Protein 7.3 g/dL (6.4-8.2); Triglyceride 86 mg/dL (<150)
== END 2024-06-16 14:56 | disposition home or self-care (01) ==
LOC: NCHCN 14:55
PROVIDERS: PCP Nurse Practitioner Family; Visit Provider Nurse Practitioner Family
DX: I65.29 Occlusion and stenosis of unspecified carotid artery (principal)
CPT/HCPCS: 80053; 80061

== ENCOUNTER 2024-09-18 09:46 | Outpatient (REF) | payer MEDICARE, SELFPAY ==
[2024-09-18 15:37] LABS: Bilirubin Negative (Negative); Blood Negative (Negative); Clarity Clear (Clear); Glucose Negative (Negative); Ketones Negative (Negative); Leukocyte Esterase Negative (Negative); Nitrite Negative (Negative); Urobilinogen 0.2 mg/dL (Up to 0.2); pH 6.5 (5-8)
[2024-09-18 22:37] LABS: PSA, Screening 1.4 ng/mL (<=6.5)
== END 2024-09-18 09:47 | disposition home or self-care (01) ==
LOC: NCHCN 09:46
PROVIDERS: PCP Nurse Practitioner Family; Visit Provider Nurse Practitioner Family
DX: R39.11 Hesitancy of micturition (principal)
CPT/HCPCS: 84153; 81003